=== PATIENT | female | born 1960 | race African-American/Black ===

== ENCOUNTER 2016-04-30 17:20 | Emergency (ER) | payer MEDICARE, MEDICAID ==
[~2016-04-30 17:20] MED LIST: ADULT ASPIRIN81 MG PO; ALPRAZOLAM ER0.5 M1 PO; AMOXICILLIN500 M PO; ANTI-DIARRHEAL2 MG PO; ASPIR 8181 MG PO; ATARAX50 MG PO; AUGMENTIN 875-1 EAC2 PO; BISACODYL5 M1 PO; BUDESONIDE EC3 MG PO; BYSTOLIC10 M1 PO; BYSTOLIC10 MG PO; CARVEDILOL12.5 MG PO; CEPHALEXIN500 M1 PO; COLACE100 M1 PO; COMPAZINE10 M PO; COMPAZINE10 MG PO; COZAAR25 MG; COZAAR25 MG PO; CRESTOR10 MG PO; CRESTOR5 MG; CRESTOR5 MG PO; DOXY-LEMMON100 MG PO; FAMOTIDINE40 M2 PO; HYDROCODON-ACE1 EA15 PO; HYDROCODON-ACE1 EA16 PO; HYDROCODON-ACE1 EAC7 PO; IBUPROFEN200 M2 PO; IBUPROFEN200 M3 PO; IMODIUM2 MG PO; LISINOPRIL2.5 MG PO; LISINOPRIL5 MG; LOPRESSOR25 MG/TA1 PO; LOSARTAN-HCTZ1 EAC1 PO; METOPROLOL TART25 MG; NORCO 10/3251 TA1 PO; NORCO 5-325 TA1 EACH PO; NORCO 5/325 TAB1 TAB PO; NORCO 7.5/325 T1 TAB PO; NORVASC5 MG; NORVASC5 MG PO; PEN-VEE K500 MG PO; PERCOCET 5-3251 EACH PO; PLAVIX75 MG; PRAVACHOL40 MG; PRAVACHOL40 MG PO; RELAFEN500 MG PO; SLEEP AID25 M1 PO; TRAMADOL HCL50 M2 PO; VOLTAREN75 MG; ZESTRIL2.5 MG; ZOFRAN ODT4 MG/UDTAB PO
[2016-04-30] MEDS ORDERED: LOVASTATIN PO (18:05)
[2016-04-30] MEDS ORDERED: COZAAR25 M1 PO (18:05)
[2016-04-30] MEDS ORDERED: CYCLOBENZAPRINE10 M1 PO (18:06)
[2016-04-30] MEDS ORDERED: PREDNISONE10 M1 PO (18:06)
[2016-04-30] MEDS ORDERED: XANAX0.5 M1 PO (18:07)
[2016-04-30] MEDS ORDERED: PLAVIX75 M1 PO (18:07)
[2016-04-30] MEDS ORDERED: PERCOCET 10-321 EACH PO (18:08)
[2016-04-30] MEDS ORDERED: DULERA 200 MCG/13 G1 INH (18:09)
[2016-04-30] MEDS ORDERED: MS CONTIN15 M1 PO (18:09)
[2016-04-30] MEDS ORDERED: AMLODIPINE BESYL5 MG PO (18:10)
[2016-04-30] MEDS ORDERED: BYSTOLIC5 M1 PO (18:10)
[2016-04-30] MEDS ORDERED: AUGMENTIN 875-1 EAC2 PO (18:50)
[2016-04-30] MEDS ORDERED: PREDNISONE20 M1 PO (18:50)
[2016-04-30] MEDS ORDERED: VIGAMOX3 M1 OP (18:50)
[2016-04-30 19:27] LABS: URINE BILIRUBIN NEGATIVE (NEG); URINE BLOOD SMALL (NEG); URINE GLUCOSE (UA) NEGATIVE (NEG); URINE KETONE NEGATIVE (NEG); URINE LEUKOCYTE ESTERASE NEGATIVE (NEG); URINE NITRITE NEGATIVE (NEG); URINE PROTEIN NEGATIVE (NEG)
[2016-04-30 19:30] LABS: URINE APPEARANCE CLEAR; URINE COLOR YELLOW
[2016-04-30 19:33] LABS: URINE EPITHELIAL CELLS 0 /[HPF] (0-10); URINE RBC RARE /[HPF] (0-5); URINE WBC RARE /[HPF] (0-5)
[2016-04-30 19:39] LABS: BASO % 0.5 % (0-2); EOS % 1.2 % (0-7); HCT-HEMATOCRIT 42.7 % (34.0-49.0); HGB-HEMOGLOBIN 14.3 gm/dl (12.0-15.5); IMMATURE GRANULOCYTES ABSOLUTE 0.04 tho/cmm (0-0.03); IMMATURE GRANULOCYTES PERCENT 0.3 % (0-0.3); LYMPH % 39.7 % (20-45); MCH (MEAN CORPUSCULAR HGB) 28.1 pg (28.0-32.0); MCHC MEAN CORPUSCULAR HGB CONC 33.5 % (32.0-36.0); MCV (MEAN CELL VOLUME) 84.1 fl (82.0-96.0); MEAN PLATELET VOLUME 10.2 cmc (9.4-12.4); MONO % 5.9 % (0-12); NEUTROPHIL ABSOLUTE COUNT 8.1 tho/cmm (1.6-8.0); NEUTROPHIL-AUTOMATED 8.1 tho/cmm (1.6-8.0); NEUTROPHILS % 52.4 % (40-80); PLATELET COUNT 355 tho/cmm (150-450); RED BLOOD COUNT 5.08 mil/cmm (4.00-5.20); RED CELL DISTRIBUTION WIDTH 12.9 % (12.4-16.4); WHITE BLOOD COUNT 15.4 tho/cmm (4.0-10.0)
[2016-04-30 19:40] LABS: BASO ABSOLUTE COUNT 0.1 tho/cmm (0.0-0.2); EOSINOPHIL ABSOLUTE COUNT 0.2 tho/cmm (0.0-0.7); LYMPH ABSOLUTE COUNT 6.1 tho/cmm (0.8-4.5); MONOCYTE ABSOLUTE COUNT 0.9 tho/cmm (0.0-1.2)
[2016-04-30 20:07] LABS: ALB/GLOB RATIO 0.8 (0.8-2.0); ALBUMIN 3.9 g/dl (3.5-5.0); ALKALINE PHOSPHATASE 90 U/L (33-138); ALT/SGPT 33 U/L (12-78); ANION GAP 12 mmol/L (0-20); AST/SGOT 44 U/L (10-40); BILIRUBIN,TOTAL 0.4 mg/dl (0-1.5); BLOOD UREA NITROGEN 8 mg/dl (6-24); CALCIUM 9.9 mg/dl (8.5-10.5); CARBON DIOXIDE-VENOUS 28 mmol/L (22-32); CHLORIDE 104 mmol/l (96-110); CREATININE 0.72 mg/dl (0.50-1.10); GLUCOSE 114 mg/dL (70-110); SODIUM 141 mmol/L (135-145); eGFR VALUE FOR BLACK >90 mL/Min
[2016-10-16] MEDS ORDERED: HYDROCODON-ACE1 EA16 PO (19:07)
[2016-10-16] MEDS ORDERED: NORCO 7.5-3251 EACH PO (19:26)
== END 2016-04-30 21:22 ==
LOC: EDMED 17:20
PROVIDERS: Nurse Practitioner Family
DX: J32.9 Chronic sinusitis, unspecified (principal); J06.9 Acute upper respiratory infection, unspecified; I10 Essential (primary) hypertension; I25.2 Old myocardial infarction; Z86.73 Personal history of transient ischemic attack (TIA), and cerebral infarction without residual deficits; Z87.891 Personal history of nicotine dependence; Z79.899 Other long term (current) drug therapy